=== PATIENT | male | born 1945 ===

== ENCOUNTER 2020-01-11 19:43 | Emergency (ER) | payer MEDICARE, MEDICAID ==
--- NOTE | 2020-01-11 20:27 | EDM.PDOC ---
ED HPI GENERAL MEDICAL PROBLEM - General Chief Complaint: Gastrointestinal Problem Stated Complaint: [facility] Time Seen by Provider: 01/11/20 19:57 Source of Information: Reports: Patient History Limitations: Reports: No Limitations - History of Present Illness INITIAL COMMENTS - FREE TEXT/NARRATIVE: Mr. Vraela is a very pleasant 74-year-old gentleman who now the ED with bloody diarrhea. He states that he ate a lot of red grapes yesterday, then had mildly reddish watery diarrhea this morning. No associated pain. Over the course of the day, his stools seem to become more more red, then, around 17:30 to 18:00, he thought that he was about to faint as he was sitting on the toilet. He states that he lowered himself to the floor, where he stayed about 30 to 40 minutes. He could see that his bowel movement was deeply red. No prior similar symptoms. The patient states that he has never undergone an EGD or colonoscopy. He does not take any NSAIDs on a regular basis. The patient states that his gave him a single tablet of an antidiarrheal medicine (likely loperamide, but the patient does not recall its name) early this afternoon. Here in the ED, the patient is found to be hemodynamically stable, afebrile, saturating 100% on room air. Other than the red diarrhea, the patient denies having a recent fever, chills, sore throat, ear pain, nasal or sinus congestion, cough, dyspnea, chest pain, palpitations, nausea, vomiting, constipation, diarrhea, abdominal pain, urinary symptoms, recent weight gain or weight loss, recent bloody bowel movements or black bowel movements, recent joint aches, headaches, or rashes. Patient does not have a PCP. 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) Endocrine/Metabolic History: Reports: Obesity/BMI 30+ (Prediabetes) - Past Surgical History HEENT Surgical History: Reports: Cataract Surgery (bilateral) Social & Family History - Tobacco Use Smoking Status *Q: Never Smoker - Alcohol Use Alcohol Use History: No - Recreational Drug Use Recreational Drug Use: Yes Drug Use in Last 12 Months: Yes Recreational Drug Type: Reports: Marijuana/Hashish (CBD drops) - Living Situation & Occupation Living situation: Reports: , with Spouse Occupation: Retired ED ROS GENERAL - Review of Systems Review Of Systems: Comprehensive ROS is negative, except as noted in HPI. ED EXAM, GI/ABD - Physical Exam Exam: See Below Exam Limited By: No Limitations General Appearance: Alert, WD/WN, No Apparent Distress Eyes: Bilateral: Normal Appearance, EOMI Ears: Normal External Exam, Hearing Grossly Normal Nose: Normal Inspection Throat/Mouth: Normal Inspection, Normal Lips, Normal Voice, No Airway Compromise Head: Atraumatic, Normocephalic Neck: Normal Inspection, Full Range of Motion Respiratory/Chest: No Respiratory Distress, Lungs Clear, Normal Breath Sounds, No Accessory Muscle Use Cardiovascular: Normal Peripheral Pulses, Regular Rate, Rhythm, No Edema, No Gallop, No JVD, No Murmur, No Rub GI/Abdominal Exam: Normal Bowel Sounds, Soft, No Organomegaly, No Distention, No Abnormal Bruit, No Mass, Other (No tenderness to palpation of the abdomen, although the patient states that because of his diarrhea, it feels somewhat uncomfortable to palpate) Rectal (Males) Exam: Normal Rectal Tone, Bloody Stool (Deep maroon), Heme + Stool. No: Mass Back Exam: Normal Inspection, Full Range of Motion, NT Extremities: Normal Inspection, Normal Range of Motion, No Pedal Edema, Normal Capillary Refill Neurological: Alert, Oriented, Normal Cognition, No Motor/Sensory Deficits Psychiatric: Normal Affect Skin Exam: Warm, Dry, Intact, Normal Color, No Rash Course - Vital Signs Last Recorded V/S: Last Vital Signs Temp 36.5 C 01/11/20 19:55 Pulse 75 01/11/20 19:55 Resp 18 01/11/20 19:55 BP 132/95 H 01/11/20 19:55 Pulse Ox 100 01/11/20 19:55 Orthostatic Blood Pressure [ 145/99 Standing] Orthostatic Blood Pressure [ 131/104 Supine] - Orders/Labs/Meds Labs: Laboratory Tests 01/11/20 01/11/20 Range/Units 20:34 20:34 WBC 11.75 H (4.23-9.07) K/mm3 RBC 4.35 L (4.63-6.08) M/mm3 Hgb 14.3 (13.7-17.5) gm/dl Hct 42.4 (40.1-51.0) % MCV 97.5 H (79.0-92.2) fl MCH 32.9 H (25.7-32.2) pg MCHC 33.7 (32.2-35.5) g/dl RDW Std Deviation 43.3 (35.1-43.9) fL Plt Count 225 (163-337) K/mm3 MPV 9.4 (9.4-12.3) fl Neutrophils % (Manual) 82 H (40-60) % Band Neutrophils % 0 (0-10) % Lymphocytes % (Manual) 9 L (20-40) % Atypical Lymphs % 1 % Monocytes % (Manual) 6 (2-10) % Eosinophils % (Manual) 1 (0.8-7.0) % Basophils % (Manual) 1 (0.2-1.2) Platelet Estimate Adequate RBC Morph Comment Normal Sodium 142 (136-145) mEq/L Potassium 4.2 (3.5-5.1) mEq/L Chloride 105 (98-107) mEq/L Carbon Dioxide 24 (21-32) mEq/L Anion Gap 17.2 H (5-15) BUN 22 H (7-18) mg/dL Creatinine 1.0 (0.7-1.3) mg/dL Est Cr Clr Drug Dosing TNP Estimated GFR (MDRD) > 60 (>60) mL/min BUN/Creatinine Ratio 22.0 H (14-18) Glucose 137 H (83-115) mg/dL Calcium 9.0 (8.5-10.1) mg/dL Magnesium 1.9 (1.8-2.4) mg/dl Total Bilirubin 0.5 (0.2-1.0) mg/dL AST 34 (15-37) U/L ALT 88 H (16-63) U/L Alkaline Phosphatase 62 (46-116) U/L Total Protein 7.0 (6.4-8.2) g/dl Albumin 3.7 (3.4-5.0) g/dl Globulin 3.3 gm/dL Albumin/Globulin Ratio 1.1 (1-2) Meds: Medications Discontinued Medications Generic Name Dose Route Start Last Admin Trade Name Freq PRN Reason Stop Dose Admin Sodium Chloride 1,000 mls @ 999 mls/hr 01/11/20 22:05 01/11/20 22:28 Normal Saline IV 01/11/20 23:05 999 mls/hr ONETIME ONE Administration Sodium Chloride 1,000 mls @ 999 mls/hr 01/11/20 23:46 01/11/20 23:55 Normal Saline IV 01/12/20 00:46 999 mls/hr ONETIME ONE Administration - Re-Assessments/Exams Free Text/Narrative Re-Assessment/Exam: 01/11/20 20:22 As above, the patient had mildly red diarrhea this morning, then developed lightheadedness with near-syncope this evening, followed by a significantly red bowel movement. No abdominal pain, nausea, or vomiting. On examination, he does not complain of tenderness to his abdomen, although he states that it does not feel good when I press on it, due to his diarrhea. On rectal examination, the stool is deeply maroon in color, but on Hemoccult test, while it does turn blue, it took some time to do so, indicating to me that some of the color is probably due to the red grapes that he ate last night, and not entirely due to blood. This makes it more difficult to determine if it is from the right colon (maroon) or the left colon (bright red). I have ordered a work-up that includes orthostatics and blood work. Because he does not have abdominal pain or significant abdominal tenderness, I do not see an indication for an emergency CT of the abdomen at this time. Similarly, because the patient does not have abdominal pain, nausea, vomiting, this appears to be a lower GI bleed, and not an upper GI bleed. 01/11/20 22:08 Patient is orthostatic. His CBC is remarkable for WBC count modestly elevated at 11.75, but with 0% bandemia. The remainder of his CBC is unremarkable. His CMP is remarkable for an anion gap mildly elevated at 17.2, but with a bicarbonate normal at 24. His BUN is slightly elevated at 22, with a Cr normal at 1.0. His blood glucose is mildly elevated 137. His ALT is mildly elevated at 88 with an AST normal at 34, and the remainder of his CMP being unremarkable. His magnesium level is within normal at 1.9. Is on the above, I have ordered a 1 L bolus of IV fluid, to be followed by repeat orthostatics. 01/11/20 23:46 Following 1 L of IV fluid, the patient is still orthostatic. I have therefore ordered a second liter of IV fluid, to be followed by repeat orthostatics. 01/12/20 01:09 Repeat orthostatics following a second liter of IV fluid are still positive, however, I am notified by Denia RIVAS that the patient is anxious to go home. 01/12/20 01:18 Test results discussed with the patient. I explained that just because his H/H was normal does not mean that he is not anemic, since he was found to be intravascularly depleted, requiring 2 L of IV fluid, which would have diluted his blood, and more needed. I therefore recommended that we admit him to the hospital for further evaluation, however, he declined, preferring to go home. I will refer him to Dr. Raymond for further evaluation that will require colonoscopy, however, I also had the patient promised that if his symptoms worsen, he will return to the ED, with the understanding that he would almost certainly be admitted at that time. The patient agreed. Departure - Departure Time of Disposition: 01:19 Disposition: Home, Self-Care 01 Condition: Fair Clinical Impression: Lower GI bleed, Orthostasis - Discharge Information *PRESCRIPTION DRUG MONITORING PROGRAM REVIEWED*: Not Applicable *COPY OF PRESCRIPTION DRUG MONITORING REPORT IN PATIENT MESSI: Not Applicable Instructions: Gastrointestinal Bleeding, [id number] Referrals: Rob Raymond MD [Physician] - PCP,None [Primary Care Provider] - Forms: ED Department Discharge Additional Instructions: You were seen in the emergency room after having mildly red diarrhea most of the day, then much darker red blood per rectum this evening. Work-up in the ER included blood work and positional blood pressure checks. Your blood work did not find any anemia, however, your heart rate bobo excessively between lying and standing, indicating intravascular depletion. You were given 2 L of IV fluid, and your heart rate still bobo excessively. As discussed, you have likely suffered a significant blood loss, even though your hemoglobin and hematocrit were normal. Admission to the hospital was recommended, but declined. We recommend that you follow-up with the surgeon Dr. Rob Raymond at the next available appointment. Call his office Tuesday morning. Make sure that the telephone operator receptionist understands that you are following up from the ER for a lower GI bleed. If, before you can get in to see Dr. Raymond, your symptoms worsen, please do not hesitate to return to the ER. Be aware that at that time, you would almost certainly be admitted to the hospital or transferred to another hospital. Sepsis Event Note (ED) - Evaluation Sepsis Screening Result: No Definite Risk
[2020-01-11] MEDS ORDERED: Sodium Chloride 0.9% 1,000 ML IV ONE ×2 (22:05→23:46)
== END 2020-01-12 01:40 | disposition home or self-care (01) ==
LOC: JD.ED 19:43
DX: K92.2 Gastrointestinal hemorrhage, unspecified (principal); E66.9 Obesity, unspecified
CPT/HCPCS: 36415; 80053; 83735; 85007; 85027; 96360; 96361; 99284; J7030; 99283